=== PATIENT | female | born 1935 | race Caucasian/White ===

== ENCOUNTER 2024-09-16 21:30 | Inpatient (IN) | payer OTHER, SELFPAY ==
[2024-09-16 18:40] VITALS: BMI 20.3
[2024-09-16 18:45] VITALS: BP 172/88
[2024-09-16 18:56] LABS: Glucose - Point of Care 95 mg/dl (70-99)
--- NOTE | 2024-09-16 19:06 | ED.CVA ---
History of Present Illness
<Lynne De Los Santos COMMODITIES CLERK - Last Filed: 09/16/24 22:00>
General
Chief Complaint: CVA/TIA Symptoms
Source: patient and family (daughter and son in law at bedside)
Exam Limitations: none
Time Seen by Provider: 09/16/24 19:01
Onset of Stroke Symptoms
Onset of symptoms known: Yes
Date of onset of symptoms: 09/16/24
History of Present Illness
History of Present Illness:
89 yo female with hx of HTN, seizures (last known seizure 8 mos ago), lives alone. Last known normal 10 a.m. today. Was on the phone with her daughter around 17:45 when she developed 'talking gibberish.' She presents with family who state she is
fully oriented but still with periods of talking gibberish. Pt denies H/A, durham in vision, weakness, numbness. She is fully conversive and oriented but does have short periods of word salad/expressive aphasia.
Past History
<Lynne De Los Santos, COMMODITIES CLERK - Last Filed: 09/16/24 22:00>
Past History
ED Past Medical History: HTN, Hypercholesterolemia, Seizures and Other (Cochlear implants)
ED Past Surgical History: None
Social History
Tobacco: Non-smoker
Personal:
Living: with family
Employment: Retired
Review of Systems
<Lynne De Los Santos COMMODITIES CLERK - Last Filed: 09/16/24 22:00>
Review of Systems
Allergies reviewed?: Yes
All Other Systems: ROS reviewed and negative except as documented in HPI and ROS
Constitutional: Denies fever or fatigue
Respiratory: Denies trouble breathing
Cardiac: Denies chest pain
ABD/GI: Denies abdominal pain, nausea, vomiting or diarrhea
: Denies dysuria, frequency or difficulty voiding
Musculoskeletal: Reports no symptoms; Denies edema
Skin: Reports no symptoms
Neurological: Reports other (Expressive aphasia); Denies dizzy, headache, weakness or numbness
Phy Exam
<Lynne De Los Santos COMMODITIES CLERK - Last Filed: 09/16/24 22:00>
Physical Exam
Physical Exam:
GENERAL: No acute distress. A&Ox3.
CONSTITUTIONAL: Afebrile.
EYES: clear, conjunctivae normal
ENMT: moist mucus membranes, Pharynx nl
RESPIRATORY: Regular respirations, nonlabored, lungs clear.
CARDIOVASCULAR: Regular rate and rhythm, no murmurs, no rubs.
GI: Soft, nontender, normal BS
MUSCULOSKELETAL: Moves with ease. Well perfused.
SKIN: Warm, dry, pink
PSYCH: Normal mood and affect. Well kept, interactive and appropriate
NEUROLOGIC: Awake, alert and oriented. Speech clear. Strength equal throughout. Short episodes of mild aphasia/word salad intermittently. No focal neurological deficits. Out of bed and ambulating well to bathroom
Scores
<Lynne De Los Santos COMMODITIES CLERK - Last Filed: 09/16/24 22:00>
NIH Stroke Score
Level of Consciousness: 0 - Alert
LOC Questions: 0-Answers both correctly
LOC Commands: 0-Performs both correctly
Best Horizontal Gaze: 0-Normal
Visual Payne: 0=Normal, no visual loss
Facial Palsy: 0=Normal, symmetrical
Motor - Right Arm: 0=No drift 10 seconds
Motor - Left Arm: 0=No drift 10 seconds
Motor - Right Le-No drift 5 seconds
Motor - Left Le-No drift 5 seconds
Limb Ataxia: 0-Absent
Sensation: 0-Normal
Best Language: 1-Mild aphasia
Dysarthria: 0-Normal
Extinction and Inattention: 0-No abnormality
Total Score:: 1
Course
<Lynne De Los Santos COMMODITIES CLERK - Last Filed: 09/16/24 22:00>
Orders/Labs/Results
Orders:
Orders
09/16/24 19:05
NEUROLOGY CONSULT Urgent
Consulting Provider: Concepcion Maria
Was physician already notified: Yes
Reason for consult: change in mental state
09/16/24 19:07
CT HEAD STROKE ALERT W/o Cont Urgent
Comment:
Reason For Exam: change in mental state
CT HEAD/NECK ANG STROKE ALERT Urgent
Comment:
Reason For Exam: change in mental state
09/16/24 19:25
Complete Blood Count/With Diff Urgent
Comprehensive Metabolic Panel Urgent
PTT Urgent
Prothrombin Time Urgent
09/16/24 21:00
Acetaminophen [Tylenol] 650 mg PO NOW STA
Flush (0.9% Sodium Chloride) [Flush (Nss)] See Dose Instructions IV PER PROTOCOL
09/16/24 21:14
Admit/Transfer Patient As Directed
Co-Sign Provider:
Level of Care: Inpatient admission
Assign to:: Telemetry
Physician / Group: hospitalist
Diagnosis: TIA, new onset afib
Reason for Telemetry: CVA/TIA
Date to Stop Telemetry: 09/19/24
Time to Stop Telemetry: 11:00
Reason for Hospitalization: CVA/TIA
Expected length of stay greater than two midnights?: Yes
ELOS- Estimated Length of Stay in days: 2
I certify the patient meets the requirements for IP care: Yes
09/16/24 21:15
Code Status As Directed
Resuscitation Status: Full Code
09/19/24 11:00
DC Protocol for Telemetry ONCE
Abnormal Lab Results
09/16/24
19:25
WBC 12.4 H 10^3/uL
(4.8-10.8)
Abs Immat Gran (auto) 0.1 H 10^3/uL
(0-0.05)
Absolute Neuts (auto) 8.7 H 10^3/uL
(1.4-6.5)
Absolute Monos (auto) 0.7 H 10^3/uL
(0.1-0.6)
Sodium 129 L mmol/L
(135-145)
Chloride 94 L mmol/L
(98-107)
BUN 19 H mg/dl
(7-17)
09/16/24 19:25
09/16/24 19:25
Vital Signs
Initial and Last Documented VS:
Initial Vital Signs
Temp Pulse Resp BP Pulse Ox
98.3 F 83 18 172/88 89
09/16/24 18:45 09/16/24 18:45 09/16/24 18:45 09/16/24 18:45 09/16/24 18:45
Last Documented Vital Signs
Temp Pulse Resp BP Pulse Ox
100.2 F 104 19 160/88 93
09/16/24 19:00 09/16/24 21:00 09/16/24 21:00 09/16/24 19:22 09/16/24 20:35
Lamp Replacer consulted with Physician
Lamp Replacer consulted with physician?: Yes
Name of Physician Consulted: Robert
Neillt;Jose Jones, DO - Last Filed: 09/16/24 20:22>
Orders/Labs/Results
Orders:
Orders
09/16/24 19:05
NEUROLOGY CONSULT Urgent
Consulting Provider: Concepcion Maria
Was physician already notified: Yes
Reason for consult: change in mental state
09/16/24 19:07
CT HEAD STROKE ALERT W/o Cont Urgent
Comment:
Reason For Exam: change in mental state
CT HEAD/NECK ANG STROKE ALERT Urgent
Comment:
Reason For Exam: change in mental state
09/16/24 19:25
Complete Blood Count/With Diff Urgent
Comprehensive Metabolic Panel Urgent
PTT Urgent
Prothrombin Time Urgent
09/16/24 21:00
Acetaminophen [Tylenol] 650 mg PO NOW STA
Flush (0.9% Sodium Chloride) [Flush (Nss)] See Dose Instructions IV PER PROTOCOL
09/16/24 21:14
Admit/Transfer Patient As Directed
Co-Sign Provider:
Level of Care: Inpatient admission
Assign to:: Telemetry
Physician / Group: hospitalist
Diagnosis: TIA, new onset afib
Reason for Telemetry: CVA/TIA
Date to Stop Telemetry: 09/19/24
Time to Stop Telemetry: 11:00
Reason for Hospitalization: CVA/TIA
Expected length of stay greater than two midnights?: Yes
ELOS- Estimated Length of Stay in days: 2
I certify the patient meets the requirements for IP care: Yes
09/16/24 21:15
Code Status As Directed
Resuscitation Status: Full Code
09/19/24 11:00
DC Protocol for Telemetry ONCE
Abnormal Lab Results
09/16/24
19:25
WBC 12.4 H 10^3/uL
(4.8-10.8)
Abs Immat Gran (auto) 0.1 H 10^3/uL
(0-0.05)
Absolute Neuts (auto) 8.7 H 10^3/uL
(1.4-6.5)
Absolute Monos (auto) 0.7 H 10^3/uL
(0.1-0.6)
Sodium 129 L mmol/L
(135-145)
Chloride 94 L mmol/L
(98-107)
BUN 19 H mg/dl
(7-17)
09/16/24 19:25
09/16/24 19:25
Vital Signs
Initial and Last Documented VS:
Initial Vital Signs
Temp Pulse Resp BP Pulse Ox
98.3 F 83 18 172/88 89
09/16/24 18:45 09/16/24 18:45 09/16/24 18:45 09/16/24 18:45 09/16/24 18:45
Last Documented Vital Signs
Temp Pulse Resp BP Pulse Ox
100.2 F 104 19 160/88 93
09/16/24 19:00 09/16/24 21:00 09/16/24 21:00 09/16/24 19:22 09/16/24 20:35
<Lynne De Los Santos, COMMODITIES CLERK - Last Filed: 09/16/24 22:00>
MDM/Problems Addressed
Differential Diagnosis Includes:
post ictal, TIA, CVA
MDM/Problems Addressed:
89 yo female with hx of HTN, seizures (last known seizure 8 mos ago), lives alone. Last known normal 10 a.m. today. Was on the phone with her daughter around 17:45 when she developed 'talking gibberish.' She presents with family who state she is
fully oriented but still with periods of talking gibberish. Pt denies H/A, dur[place] in vision, weakness, numbness. She is fully conversive and oriented but does have short periods of word salad/expressive aphasia.
NIH score 1
CBC unremarkable
CMP: Hyponatremia, Na+ at her baseline. Otherwise unremarkable
7:20 PM:
Radiology report texted: No acute abnormalities, aspect score 10
CT Head/neck stroke alert report reviewed: No acute finding
Plan: Admit: expressive aphasia, new onset afib. Has been NSR most of time with short runs of a fib w RVR
Consulted Neurology about poss Heparinization, she states anticoagulation should be delayed to day 5 from acute stroke symptoms.
Hospitalist notified of admission
<Lynne De Los Santos, COMMODITIES CLERK - Last Filed: 09/16/24 22:00>
*Critical Care Note
Total Time (30-74mins, 75-104mins- exclusive of procedures): Not Applicable
ED Attending Note
<Lynne De Los Santos COMMODITIES CLERK - Last Filed: 09/16/24 22:00>
-
Portions of this chart may have been created with voice recognition software.� Occasional wrong word or��sound alike� substitutions may have occurred due to the inherent limitations of voice recognition software.
<Jose Jones DO - Last Filed: 09/16/24 20:22>
ED Attending Note
Patient seen and examined by attending physician: Yes
I performed the substantive portion of visit, reviewed & personally made and approve the management plan that is documented in note by myself or ISIS.: Yes
ED Attending Note:
I agree with Linsey's note
Patient brought to the emergency room because she was having some speech abnormalities. Patient uttering unusual phrases and words. She typically can communicate normally. She does have a history of seizures, both [place] and's. Typically She
Has a Short Period of Time with Confusion That Quickly Resolves. She Has Had the Symptoms for the past Several Hours. She Was Last Known to Be Normal at 10 AM. Patient Offers No Complaints.
General: Awake, Alert, Oriented X3. No acute distress.
Vitals: unremarkable
Head: Atraumatic
Eyes: Pupils equal, EOMI
Throat: Airway intact, no exudates
Neck: Trachea midline
Lungs: Clear and equal b/l
Heart: Regular rate, no murmurs
Abd: Soft, Nontender, No pulsatile mass
Neuro: Some expressive aphasia, cranial nerves intact, muscle strength equal bilaterally, cerebellar exam normal
Skin: Warm, dry, no rash
Extremities: pulses equal b/l, no edema
CT head and neck showed no significant acute abnormalities.
Patient will be hospitalized for stroke workup. She has been having episodes of tachycardia which appear to be runs of atrial fibrillation. Will discuss with neurology anticoagulation if they improve we will anticoagulate as appropriate.
Discharge Plan
Departure
Patient Disposition: Admit
Date of Disposition: 09/16/24
Time of Disposition: 20:30
Admit to: Med/Surg
Presentation/result/management discussed w/ accepting MD/DO: Hospitalist
Condition: Fair
Discharge Problem:
Expressive aphasia, Atrial fibrillation, new onset
Interventions
Interventions:
*General Assessment Last Done: 09/16/24 19:41
*Neglect/Abuse Screening Last Done: 09/16/24 19:41
ED- Fall Risk Assessment Last Done: 09/16/24 19:41
*ED COVID-19 Vaccine History Last Done: 09/16/24 19:41
ED- Pulmonary Assessment Last Done: 09/16/24 19:41
ED- Neurological Assessment Last Done: 09/16/24 19:41
ED- Cardiac Assessment Last Done: 09/16/24 19:41
ED Swallowing Screen Last Done: 09/16/24 21:01
[2024-09-16 19:22] VITALS: BP 160/88
[2024-09-16 19:32] LABS: % Basophils 0.3 % (0-2); % Eosinophils 0.1 % (0-6); % Immature Granulocytes 0.4 % (0-0.5); % Lymphocytes 24.2 % (20.5-51.1); % Monocytes 5.4 % (1.7-9.3); % Neutrophils 69.6 % (42.2-75.2); Absolute Immature Granulocytes 0.1 10^3/uL (0-0.05); Absolute Monocytes 0.7 10^3/uL (0.1-0.6); Absolute Neutrophils 8.7 10^3/uL (1.4-6.5); Hematocrit 41.1 % (37.0-47.0); Hemoglobin 13.9 g/dL (12.0-16.0); Mean Corp Hgb Conc. 33.8 g/dL (33.0-37.0); Mean Corpuscular Hgb 30.5 pg (27.0-31.0); Mean Corpuscular Volume 90.1 fL (81.0-99.0); Mean Platelet Volume 8.2 fL (7.4-10.4); Nucleated Red Blood Cells % 0 %; Platelet Count 303 10^3/uL (130-400); Red Blood Cell Count 4.56 10^6/uL (4.20-5.40); Red Cell Dist. Width 12.9 % (11.5-14.5); White Blood Cell Count 12.4 10^3/uL (4.8-10.8)
[2024-09-16 19:42] LABS: INR 0.95; PT 12.9 Sec (11.4-14.6)
[2024-09-16 19:43] LABS: APTT 31.4 Sec (23.4-35.0)
[2024-09-16 19:45] LABS: ALT (SGPT) 16 U/L (0-35); AST (SGOT) 27 U/L (14-36); Albumin 4.9 g/dl (3.5-5.0); Alkaline Phosphatase 101 U/L (38-126); Blood Urea Nitrogen 19 mg/dl (7-17); Calcium 9.8 mg/dl (8.4-10.2); Carbon Dioxide 24 mmol/L (22-30); Chloride 94 mmol/L (98-107); Estimated Creatinine Clearance 43 ml/min; Glucose 93 mg/dl (70-99); Potassium 4.7 mmol/L (3.5-5.1); Sodium 129 mmol/L (135-145); Total Bilirubin 0.7 mg/dl (0.2-1.3); Total Protein 7.6 g/dl (6.3-8.2); eGFR > 60.00
--- NOTE | 2024-09-16 20:36 | HPS.HSE ---
Family Physician
-
Family Physician: Reji Zamudio
Chief Complaint
-
Expressive aphasia
History of Present Illness
This is a 89-year-old female with past medical history of hypertension, seizure disorder and SIADH who presents to the Emergency Department with episode of expressive aphasia that was noted at around 5:45 PM.
Patient was last seen normal at 10 AM when he last spoke to her daughter on the phone. At around 5:30 PM family member stated that she was having difficulty getting her words out. When she does say the words, it is normal without slurring. She
appears slightly confused due to the word finding difficulty otherwise she is able to understand what people are saying and generally able to follow simple commands. Patient reported mild numbness of the toes bilaterally but denies any other focal
deficits. She denies any facial droop, difficulty swallowing, weakness or numbness. Patient denies having any lightheadedness or dizziness. She denied having any palpitations. She denies any chest pain. She denies any lower extremity swelling.
In the emergency department she was afebrile, temp was 100.2, blood pressure 160/88 with a pulse of 83. She was at 9 7% on room air. ECG was unremarkable. Telemetry did shows intermittent short runs of atrial fibrillation. No prior history of
A-fib. Patient has a normal CBC. BUN and creatinine are normal. Electrolytes notable for a sodium of 129. CT of the head shows diffuse cortical atrophy but otherwise no acute changes. CT angio shows no evidence of large vessel thrombus stenosis
dissection or aneurysm. Internal carotid artery atherosclerotic plaques without significant stenosis.
Medical History
Past Medical History
Past Medical History: Reports HTN, Seizures and Other (SIADH)
Past Surgical History: Reports Orthopedic (Right femoral ORIF)
Social History
Tobacco: Non-smoker
Alcohol: None
Drug: None
Personal: Single
Living: With Family
Family History
Family History: Not pertinent
Allergies / Home Medications
Allergies reflects when Allergies were last updated in [employer].
Home Medications with original date entered in [employer]
Allergy/Medication List:
Allergies
Allergy/AdvReac Type Severity Reaction Status Date / Time
No Known Allergies Allergy Verified 09/16/24 18:48
Home Medications
lamotrigine 200 mg tablet 200 mg PO BID 09/18/23
losartan 50 mg tablet 50 mg PO DAILY 09/18/23
calcium carbonate (Tums) 200 mg PO BID #30 tabs 09/23/23
acetaminophen 650 mg tablet,extended release (Tylenol Arthritis Pain) 650 mg PO Q8HPRN PRN mild pain 09/16/24
docusate sodium 100 mg capsule 100 mg PO HS 09/16/24
Review of Systems
-
History Source: Patient and Family
Constitutional: Reports No Symptoms
EENT: Reports No Symptoms
Respiratory: Reports No Symptoms
Cardiac: Reports No Symptoms
Abdomen/GI: Reports No Symptoms
: Reports No Symptoms
Musculoskeletal: Reports No Symptoms
Skin: Reports No Symptoms
Neurological: Reports No Symptoms
Endocrine: Reports No Symptoms
Hematologic/Lymphatic: Reports No Symptoms
Psych: Reports No Symptoms
Physical Exam
Vital Signs
Vital Signs
Temp Pulse Resp BP Pulse Ox
100.2 F 83 26 160/88 97
09/16/24 19:00 09/16/24 20:15 09/16/24 20:15 09/16/24 19:22 09/16/24 20:15
Physical Exam
General: Well Developed, Well Nourished, No Apparent Distress and Comfortable
HEENT: NormoCephalic, Anicteric, Moist mucous membranes and Atraumatic
Respiratory: Clear
Cardiac: S1/S2, Regular Rhythm, Irregular Rhythm and Carotid Pulses; No Peripheral Edema, JVD or Carotid Bruits
Breast: Deferred by me
GI: Soft, Non Tender, Non Distended and Normal Bowel Sounds
Rectal: Deferred by Provider
Genito-urinary: Deferred by me
Musculoskeletal: No Clubbing, No Cyanosis and No Edema
Skin: Warm
Neuro: AO x 3, No Motor Deficits, Cranial Nerves Intact, No Sensory Deficits and Other (word finding difficulties )
Hematologic/Lymphatic: No Lymphadenopathy
Psych: Calm
Laboratory Results
-
09/16/24 19:25
09/16/24:
Laboratory Results
PT 12.9 Sec (11.4-14.6) 09/16/24
INR 0.95 09/16/24
APTT 31.4 Sec (23.4-35.0) 09/16/24
Total Bilirubin 0.7 mg/dl (0.2-1.3) 09/16/24
AST 27 U/L (14-36) 09/16/24:
ALT 16 U/L (0-35) 09/16/24:
Alkaline Phosphatase 101 U/L (38-126) 09/16/24:
Data Reviewed
-
CT Scan: Report Reviewed by me
Medical Tests (Nuc Med, Echo, EKG etc): Image Personally Visualized and interpreted
Lab Data: Labs Reviewed by me
Old Records: Reviewed
Impression/Plan
-
IMPRESSION:
89 y.o female with h/o hypertension found to have word finding difficulty at around 545pm with a last normal at around 10 am. Currently still mildly symptomatic. No other neurological deficit. NIHSS = 1. Possibly TIA. CT head negative. CT angio
without focal stenosis, thrombus, dissection or obstruction. Found to have intermittent afib rvr on telemetry without patient awareness or symptoms.
PLAN:
CVA/TIA -
- admit to telemetry
- aspirin x 1
- given possible afib, hold plavix, check mri in am
- check cardiovascular panel and a1c
- if mri negative for hemorrhagic stroke, can start anticoagulation
- neurochecks q 6 hours
- Maintain MAP > 100, < 130
- swallow testing then start oral meds
- neurology consulted and aware
AFIB - New afib. Mostly sinus with intermittent episodes of afib RVR. No intermittent pauses.
- hemodynamically stable
- metoprolol IV prn uncontrolled afib, start oral dosing once tolerating po in am
- echo in am
- ac if mri negative for hemorrhagic stroke.
- check tsh ft4
- cardiology consult
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 Currently 129. Hypertensive
- continue fluid restriction
Seizures
- continue lamotrigine
DVT PPX - heparin sq for now pending ac
Code status - Full code. Family aware of advance directs and will investigate tomorrow to see if status needs to be changes.
[2024-09-16] MEDS: TYLENOL 650 MG PO (21:07)
[2024-09-16 21:09] VITALS: BP 186/99
[2024-09-16 22:00] VITALS: BP 151/94
[2024-09-16] MEDS: LAMICTAL 200 MG PO (22:06)
[2024-09-16 23:00] VITALS: BP 159/88; BMI 20.5
[2024-09-16] MEDS: HEPARIN 5000 UNITS SC (23:03)
[2024-09-16] MEDS: COLACE 100 MG PO (23:14)
[2024-09-17] VITALS (8 sets, daily range): BP systolic 135–179; BP diastolic 65–82; PULSE 74–83; O2SAT 99
--- NOTE | 2024-09-17 00:01 | PTCARENOTE ---
pt is aaox3, very [place] has cochlear device. pt NIH=1 for aphasia. pt is on tele appears SR w/ PACS- confirmed w/ ekg. pt is not in afib.
admission completed w/ p's daughter. Per daughter Doris has a hx of seizures and when under stress she goes into them. last time when she was here in August. she had 2 seizure activities. pulse ox applied. and padding to bed
bed alarm pn and call barreto in reach
[2024-09-17 08:16] LABS: HDL Cholesterol 87 mg/dl; LDL Cholesterol, Calculated 88 mg/dl; Total Cholesterol 193 mg/dl (50-199); Triglyceride 93 mg/dl (10-149); Very Low Density Lipoprotein 18 mg/dl (0-30)
[2024-09-17 08:31] LABS: TSH Reflex To Free T4 1.82 uIU/ml (0.47-4.68)
--- NOTE | 2024-09-17 08:45 | PTOTSP ---
Speech Language Pathology
Pt seen for speech/language evaluation. No dysarthria noted, and pt was 100% intelligible in both known and unknown contexts. Language evaluated via the Quick Aphasia Battery (QAB), form 1. Pt with an overall score of 8.98, indicative of skills
WFL. However, on sentence comprehension subtest, pt scored 7.08 (moderate deficits), and on grammatical construction subtest, pt scored 8.25 (mild deficits). Pt [place] with L cochlear implant and R hearing aid. Unsure if true receptive aphasia vs
related to hearing deficit. Neologism noted x1 in conversation, and pt was not aware of this. Also noted with agrammatism in connected speech at times, such as 'They're all doing busy. All working. Very busy.' Pt does not feel there have been
any changes.
Pt also seen for clinical bedside swallow evaluation. P.O. trials of regular solids and thin liquids provided. Adequate mastication, bolus formation, and A-P transit noted with no oral residue. No overt signs of aspiration.
Recommend:
(1) Regular solids/thin liquids
(2) General aspiration precautions
(3) Meds as tolerated
(4) Further dysphagia services not indicated. [employer] to continue to follow for cognitive-linguistic therapy pending MRI
[2024-09-17 09:07] LABS: Glycohemoglobin (HgbA1c) 5.4 % (4.0-5.6)
[2024-09-17] MEDS: COZAAR 50 MG PO (09:12)
[2024-09-17] MEDS: LAMICTAL 200 MG PO ×2 (09:13→20:14)
[2024-09-17] MEDS: HEPARIN 5000 UNITS SC ×3 (09:13→23:30)
--- NOTE | 2024-09-17 09:20 | CON.NEURO4 ---
Addendum entered and electronically signed by Hung Cheng MD 09/17/24 12:40:
Studies reviewed.
I have personally examined the patient. I reviewed and agree with the SALAD MAKER's Note.
My addenda:
Awake, alert, interactive. No acute distress.
Speech intact.
Follows 2-step requests w/o difficulty. No tremor.
Extra-ocular movements grossly intact.
Facial movements full and symmetric. Hearing intact to normal conversational volume.
Normal UE movements bilaterally.
Neck: full ROM.
Chest: no dyspnea
Heart: no JVD
Ext: (-) Clubbing, (-) Cyanosis, (-) Edema
IMPRESSIONS/RECOMMENDATIONS:
Abrupt onset of aphasia in a patient with possibly hyponatremic seizures and probable new onset atrial fibrillation
Would initiate anticoagulation if the patient is found to have atrial fibrillation or a similar substitute, immediately
Appreciate cardiology assistance
If unclear or the patient not found to have atrial fibrillation, would initiate aspirin 81 mg daily and clopidogrel 75 mg daily for total of 21 days, then aspirin alone if not using anticoagulation
Lamotrigine to be continued, follow levels
Attempt to obtain records from [place]
Initiated Atorvastatin 40 mg daily
Medical educational materials to be provided
Patient may require salt tablets to improve hyponatremia
Goal of normotension
D/W patient / family
Will continue to follow patient.
Original Note:
Consultation - Neurology 4
-
CONSULTING PHYSICIAN: Dr. Hung Cheng
REFERRING PHYSICIAN: ANGEL Szymanski
DICTATED BY: ANGEL Harkins
DATE/TIME OF REQUEST: 09/16/2024, 190
DATE/TIME OF CONSULTATION: 09/17/2024, 919
Reason for Consultation: speech changes
History of Present Illness:
This is a 89 year old right handed female patient with a past medical history of seizures, SIADH, hypertension, shoulder replacement, ORIF right hip and cochlear implant who presented to the hospital yesterday with transient expressive aphasia and
confusion. Yesterday 09/16/2024 patient was speaking with her daughter around 5:30 PM when she started having trouble getting her words out, she was then brought to the ER. She does have a history of seizures which at times presents as garbled
speech. She was also previously told that these episodes could be TIA. She takes lamotrigine 200 mg BID and follows with Dr. Isaacs in [place]. Daughter reports that she last had a seizure 6 months ago with speech changes. She had tonic clonic
seizure from sleep about 1 year ago. She does not believe that there were any changes in medications or dosage. Unsure when last lamotrigine level was drawn. She has had chronic low sodium as far back as 2013 per review of the EMR. Also it looks
as if she was on Oxcarbazepine in the past, but this was likely changed d/t low sodium.
She denied any headache, dizziness or vision changes. She denied any gait abnormality. She does admit that she does not have a good recollection of of event. Daughter reports speech was not back to baseline till much later last night.
Per chart in the ER she was found to have possible short runs of atrial fibrillation which is new to patient. She has never been on any anticoagulation. Sodium was 129. CT of the head with no acute findings.
Today speech is back at baseline.
She follows with her primary care doctor for low sodium levels. She has never been on any salt tablets or fluid restriction. She has been told to add salt to her diet.
She has had cochlear implant placed about 5 years ago. Per family it is MRI compatible. MRI team is checking make and model to ensure MRI compatibility.
Medical history was obtained form family, patient and review of EMR.
Past Medical History: Hypertension, seizure, SIADH
Surgical History: Right hip ORIF, cochlear implants
Family History: Reviewed and noncontributory
Social History: Patient lives at [facility] home independently. She does not smoke or drink alcohol.
Allergies: See below
Home Medications: See below
Review of Symptoms:
Patient denies any fever, headache, chest pain, shortness of breath, GI or symptoms. �
Vital Signs: See below
Physical Exam:
The patient is afebrile, heart sounds S1 and S2 are regular, and chest is clear to auscultation bilaterally.
Neurologic Examination:
The patient is awake, alert and oriented x 3. She is able to follow commands and answer questions appropriately. There is no aphasia or dysarthria. On cranial nerve assessment, pupils are 3 mm bilateral, round and reactive to light and
accommodation. Visual mckeon are full. Extraocular movements are intact. Facial sensations are intact and bilaterally symmetrical, there is no facial asymmetry. Hearing is significantly redudec. Tongue palate and uvula are midline.
Sternocleidomastoid strengths are full bilaterally. Motor strengths are 5/5 bilateral upper and lower extremities on medical research [place] scale. There is no drift or involuntary movement noted. Deep tendon reflexes are brisk bilateral upper and
lower extremities. Sensation of light touch is intact. Sensations of temperature and vibration are reduced distally but bilaterally symmetrical. There was no extinction noted on double simultaneous stimulation. Coordination is intact by finger to
nose bilaterally. Ambulated with walker with therapy.
Lab Results: See below
Neuro Imaging:
CT head 09/16/2024
There are no acute intracranial abnormalities.
There is moderate diffuse cortical atrophy with moderate nonspecific white matter changes as described above.
CTA head and neck
1). There is no evidence of branch occlusion or significant intracranial stenosis
2). There is a small amount of partially calcific atherosclerotic plaque at both carotid bifurcations without significant stenosis
3). There is a small amount of partially calcific atherosclerotic plaque at the cavernous and supraclinoid segments of both internal carotid arteries without significant stenosis
Impression:
JOLIE CERRATO is a 89 year old F who has presented to the hospital with transient speech changes in the setting of possible new onset of atrial fibrillation. Differentials include TIA versus acute stroke versus recurrent seizure.
Patient has the following risk factors for their symptoms age, new onset atrial fibrillation
IV Tenecteplase/IAT candidacy-low NH, resolution of symptoms, no LVO noted
Recommendations:
-Repeat CT head if unable to obtain MRI brain would be ideal, MRI department is checking compatibility for MRI
-CTA head and neck completed in the ER, no significant stenosis noted
-Given no residual deficits, though unable to obtain MRI of the brain would OK to start anticoagulation if cardiology confirms atrial fibrillation
-If not starting Anticoagulation recommendation would be DAPT for 21 days followed by Daily ASA
-LDL was 88, Atorvastatin 40 mg was initiated
-goal normoglycemia
-goal normotension
-check echo
-PT/OT and speech evaluations
-Need records from Dr. Isaacs, patients primary neurologist
-will add on Lamotrigine level
-continue Lamotrigine, may need to consider alternate AED
-May need to consider EEG
-check labs for additional metabolic causes
-NA 129, need to closely monitor
-need to closely monitor for seizure activity
Discussed patient care with:
Patient, nursing and neurologist Dr. Cheng
Medication and Allergies
Home Medications
Home Medications
�Medication �Instructions �Recorded
lamotrigine 200 mg tablet 200 mg PO BID Neurological 09/18/23
Condition
losartan 50 mg tablet 50 mg PO DAILY Blood Pressure 09/18/23
calcium carbonate (Tums) 200 mg PO BID #30 tabs 09/23/23
acetaminophen 650 mg 650 mg PO Q8HPRN PRN mild pain 09/16/24
tablet,extended release (Tylenol
Arthritis Pain)
docusate sodium 100 mg capsule 100 mg PO HS Constipation 09/16/24
Allergies
Allergies
Allergy/AdvReac Type Severity Reaction Status Date / Time
No Known Allergies Allergy Verified 09/16/24 18:48
Vital Signs / Labs
-
Vital Signs and Labs:
Temp Pulse Resp BP Pulse Ox
97.6 F 64 18 155/76 96
09/17/24 07:30 09/17/24 07:30 09/17/24 07:30 09/17/24 07:30 09/17/24 07:30
09/16/24 19:25
09/16/24 19:25
09/16/24
19:25
WBC 12.4 H
Abs Immat Gran (auto) 0.1 H
Absolute Neuts (auto) 8.7 H
Absolute Monos (auto) 0.7 H
Sodium 129 L
Chloride 94 L
BUN 19 H
--- NOTE | 2024-09-17 10:10 | CON.CAR ---
Addendum entered and electronically signed by Rene Velez MD 09/17/24 14:54:
89 woman with SIADH and history of seizures presented with an expressive aphasia. By history, her seizures are not classic tonic-clonic, sound more like absence seizures or partial complex seizures.
19. Head CT showed atrophy. No acute infarct, no large vessel occlusion by CTA of the head neck, episodes of irregular heart rhythm have prompted a request for cardiology consultation.
PMH: Hypertension, seizures, SIADH, sensorineural deafness
PSH: Right shoulder ORIF, cochlear implants
SH: , non-smoker, independent living at [facility], 9 children
FH: Noncontributory
Allergies: None
Outpatient meds: Lamotrigine, losartan 50 mg a day
Current meds: Lamotrigine, losartan 50 mg a day, aspirin 81 mg a day, subcu heparin, atorvastatin 40 mg a day, metoprolol ER 25 mg a day and Plavix 75 mg a day
147/78, pulse 68, resp rate 18, afebrile, and exam unremarkable, some crackles in lungs, regular rate and rhythm, possible click, no obvious murmurs, exam somewhat limited abdomen benign, extremities without clubbing cyanosis or edema distal pulses
intact, neuro seems to be nonfocal grossly
ECG sinus rhythm with atrial pair, left atrial enlargement
Telemetry: brief runs of what appears to be SVT with retrograde P waves, episodes of atrial tachycardia, 1 episode lasting 24 seconds. Atrial fibrillation cannot be excluded
Impression:
Atrial tachycardia, brief, no clear-cut atrial fibrillation seen thus far, asymptomatic
SVT by rhythm strip in ER, self-limited
Hyponatremia/SIADH
Seizure disorder, sounds like partial complex
Plan:
She presents with abrupt onset aphasia, now resolved, without clear-cut evidence by CT of the head and an acute ischemic insult. Sodium is 129.
Review of telemetry does not reveal atrial fibrillation brief runs of atrial tachycardia, implying increased risk of atrial fibrillation although atrial fibrillation not documented to date. She also had a brief self-limited episode of SVT on
telemetry strip in the ER with retrograde P waves.
For now, we will treat with aspirin and Plavix, and observe on telemetry for A-fib. Will apply a 2-week monitor at discharge (most likely RhythmStar) and thereafter determine if further ambulatory telemetry is required. If no arrhythmia, will
discuss whether implantation of LINQ is warranted.
Continue metoprolol. Await echocardiogram
Original Note:
Consultation
Consultation Request
Date/Time Consultation Requested: 09/17/2024
Date/Time Consultation Performed: 09/17/2024
Requesting Provider: Dr. Medrano
Performing Provider: Pam Perez PA-C for Dr. Rene Velez
Reason for Consultation: Tachycardia, PAT
Medical History
-
History of Present Illness:
Patient is an 89-year-old female with past medical history significant for hypertension, seizure disorder and SIADH who presented to emergency department 09/16/2024 with expressive aphasia that started around 5:45 PM on 09/16/2023. Patient's last
known normal was 10 AM when she spoke to daughter on the phone. Around 5:30 PM family member started noting word finding difficulty as well as mild confusion. On arrival to emergency department patient had a low-grade temperature of 100.2. Sodium
129. Head CT demonstrated diffuse cortical atrophy with no acute abnormalities. CTA of head and neck showed no evidence of large vessel occlusion, dissection or aneurysm. She was found to have intermittent episodes of tachy-arrhythmia concerning
for Afib prompting cardiology consult. Upon review of tele it appears she is having primarily paroxysmal atrial tachycardia as well as sinus rhythm w/ frequent PACs.
Patient denies having any prior cardiac history or ever seeing a fitter armament. She lives at [facility]. she denies chest pain, shortness of breath, dizziness, lightheadedness, palpitations, syncope, near syncope edema, orthopnea or PND.
Past medical history:
Hypertension
Seizure disorder
SIADH
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
Past Medical History
Past Medical History: Other (See HPI)
Past Surgical History: Orthopedic (Right shoulder ORIF) and Other (Cochlear implant)
Social History
Tobacco: Non-Smoker
Alcohol: None
Drug: None
Personal:
Living: Other (Independent living at [facility])
Family History
Family History: Reviewed & Not Pertinent
Allergies / Home Medications
Allergy/AdvReac Type Severity Reaction Status Date / Time
No Known Allergies Allergy Verified 09/16/24 18:48
�Medication �Instructions �Recorded �Confirmed �Type
lamotrigine 200 mg tablet 200 mg PO BID Neurological 09/18/23 09/16/24 History
Condition
losartan 50 mg tablet 50 mg PO DAILY Blood Pressure 09/18/23 09/16/24 History
calcium carbonate (Tums) 200 mg PO BID #30 tabs 09/23/23 09/16/24 Rx
acetaminophen 650 mg 650 mg PO Q8HPRN PRN mild pain 09/16/24 09/16/24 History
tablet,extended release (Tylenol
Arthritis Pain)
docusate sodium 100 mg capsule 100 mg PO HS Constipation 09/16/24 09/16/24 History
Review of Systems
-
History Source: Patient
All other systems: Negative unless noted
Physical Exam
Vital Signs
Temp Pulse Resp BP Pulse Ox
97.6 F 64 18 155/76 96
09/17/24 07:30 09/17/24 07:30 09/17/24 07:30 09/17/24 07:30 09/17/24 07:30
GEN: No distress, awake, Ox3
HEENT: supple, anicteric, mmm; very SLEETMUTE
LUNGS: few course BS left middle lobe otherwise CTA, no wheezes/rales
CV: Reg with ectopy noted, S1/S2, 1/6 syst murmur, no rub or gallop
ABD: soft, BS+, NT/ND
EXT: No edema, clubbing or cyanosis
NEURO: Gross non-focal
SKIN: No rash, warm, dry
Lab Results
09/16/24 19:25
09/16/24 19:25
Impression / Plan
-
PCP: Reji Zamudio
Case Repairer: None prior to admission, initial consultation Rene Velze
Impression:
Presented 09/16/2024 with word finding difficulties and confusion
TIA versus stroke versus seizure
Fever
Hyponatremia
PAT/sinus rhythm with frequent PACs
Hypertension
Seizure disorder
SIADH
Legally deaf with cochlear implant
Echo 09/17/2024: Pending
Plan:
-Presented 09/16/2024 with word finding difficulties and confusion. Noted to have low-grade fever 100.2 and hyponatremia with sodium 129
-Concern for TIA/stroke vs seizure. Head CT unremarkable. MRI ordered but unclear if it can be completed due to history of cochlear implant.
-Per my personal review of telemetry it appears that patient is having brief runs of PAT, sinus rhythm with frequent PACs. Only 1 episode of tachycardia could possibly be atrial fibrillation however very difficult to determine. Currently in sinus
rhythm w/ PACs
-Would start low-dose Toprol 25 mg daily and continue to monitor on telemetry. If no definitive atrial fibrillation on tele then would consider 1 week outpatient monitor on Toprol.
-Check echocardiogram
-TSH 1.82
-If true documented A-fib noted or if patient found to have new stroke concerning for cardioembolic cause then will need to consider anticoagulation.
-Patient on losartan for hypertension prior to admission. Can be reduced if blood pressure should become hypotensive with addition of Toprol
-Prestatin lipids TC 193, HDL 87, LDL 88, triglycerides 93. Patient now started on atorvastatin 40 mg.
-H/o SIADH with baseline Na around 127 - 130. Currently 129
HPI 09/17/2024:
Patient is an 89-year-old female with past medical history significant for hypertension, seizure disorder and SIADH who presented to emergency department 09/16/2024 with expressive aphasia that started around 5:45 PM on 09/16/2023. Patient's last
known normal was 10 AM when she spoke to daughter on the phone. Around 5:30 PM family member started noting word finding difficulty as well as mild confusion. On arrival to emergency department patient had a low-grade temperature of 100.2. Sodium
129. Head CT demonstrated diffuse cortical atrophy with no acute abnormalities. CTA of head and neck showed no evidence of large vessel occlusion, dissection or aneurysm. She was found to have intermittent episodes of tachy-arrhythmia concerning
for Afib prompting cardiology consult. Upon review of tele it appears she is having primarily paroxysmal atrial tachycardia as well as sinus rhythm w/ frequent PACs.
Patient denies having any prior cardiac history or ever seeing a fitter armament. She lives at [facility]. she denies chest pain, shortness of breath, dizziness, lightheadedness, palpitations, syncope, near syncope edema, orthopnea or PND.
Data Reviewed
-
EKG: Report Reviewed by me, Discussed with Physician and Discussed with Patient
Labs: Labs Reviewed by me, Discussed with Physician and Discussed with Patient
Old Records: Reviewed
[2024-09-17 10:20] LABS: Urine Albumin Negative (Neg - Trace); Urine Bilirubin Negative (Negative); Urine Character Clear (Clear); Urine Color Yellow; Urine Glucose Negative (Negative); Urine Ketone Negative (Negative); Urine Leukocyte Negative (Negative); Urine Nitrite Negative (Negative); Urine Occult Blood Negative (Negative); Urine Specific Gravity 1.015 (<1.030); Urine Urobilinogen Negative (Neg - 1+)
--- NOTE | 2024-09-17 10:54 | CM ---
Addendum entered by Anisha Yates 09/18/24 11:54:
Ramana
Original Note:
NYA met with Danna at bedside to complete IA. She lives independently in a cottage at [facility]. She ambulates with a rollator at home and reports being (I) amb and adls. Patient has 9 children who check on her regularly.
PT evaluated and recommend home PT to ensure safety after returning home. Pt is known to [facility] in past and pt's daughter Terri agrees to referral.
Plan: Discharge to home with [facility]ana for PT. Family will provide transport home at discharge.
[2024-09-17 11:51] LABS: Free T4 1.17 ng/dl (0.78-2.19)
[2024-09-17 12:09] LABS: Ferritin 21.7 ng/ml (11.1-264.0)
[2024-09-17] MEDS: TOPROL XL 25 MG PO (12:38)
[2024-09-17] MEDS: PLAVIX 75 MG PO (12:38)
[2024-09-17] MEDS: LOW STRENGTH ASPIRIN 81 MG PO (12:39)
[2024-09-17 12:41] LABS: Folate 15.1 ng/ml (2.76-20); Vitamin B12 665 pg/ml (239-931)
--- NOTE | 2024-09-17 15:05 | W.PN.HOSP.TC ---
Today's Communication/Plan
-
See plan
Assessment / Plan
Assessment / Plan
Impression:
Presentation with aphasia and concern for TIA/CVA.
SVT atrial tachycardia
Other conditions:
Chronic hyponatremia/SIADH
Seizure disorder.
Essential hypertension.
Legally deaf with cochlear implant
Plan:
Presentation with self-limited episode of motor aphasia.
No focal findings on neurologic examination.
CT scan of the head with no acute abnormalities
CTA with no vascular obstruction.
EKG/telemetry with atrial tachycardia and SVT with so far no evidence of arrhythmia.
Unable to perform MRI due to cochlear implant.
Current neurologic status is stable.
Initiated on DAPT.
Initiated on statin.
Outpatient cardiac monitoring for occult A-fib
Initiated on low-dose of metoprolol
Physical/speech therapy assessment
No evidence for infection including UTI.
Chronic hyponatremia sodium 129.
TSH within normal limits.
Monitor sodium.
This is less likely contributing to patient's symptoms.
Essential hypertension.
Continue metoprolol, losartan
Seizure disorder.
Likely partial seizure.
Continue Lamictal
Anticipated Discharge: 24 - 48 hours
Subjective/Interval History
-
Date of Service: September 17, 2024
Objective Data
-
Vital Signs:
Vital Signs
Temp Pulse Resp BP Pulse Ox
97.8 F 68 18 147/78 98
09/17/24 11:23 09/17/24 11:23 09/17/24 11:23 09/17/24 11:23 09/17/24 11:23
I&O
09/16/24 09/17/24 09/18/24
06:59 06:59 06:59
Intake Total 100 / 100
Balance 100 / 100
Physical Exam
-
General: Well Developed and No Apparent Distress
HEENT: Normocephalic, Atraumatic and Moist Mucous Membranes
Respiratory: Clear to Auscultation
Cardiac: Regular Rhythm and S1/S2; Negative Murmur, Rub or Gallop
GI: Soft, Nontender, Nondistended and Normal Bowel Sounds; Negative Organomegaly
Rectal: Deferred by Provider
Musculoskeletal: No Clubbing, No Cyanosis and No Edema
Skin: Negative Rash
Neuro: Nonfocal/Grossly Intact
[2024-09-17] MEDS: LIPITOR 40 MG PO (16:02)
[2024-09-17] MEDS: COLACE 100 MG PO (20:14)
[2024-09-18 03:28] VITALS: BP 123/68
[2024-09-18 07:30] VITALS: BP 160/86
[2024-09-18 07:36] LABS: Blood Urea Nitrogen 20 mg/dl (7-17); Calcium 9.3 mg/dl (8.4-10.2); Carbon Dioxide 27 mmol/L (22-30); Chloride 97 mmol/L (98-107); Estimated Creatinine Clearance 36 ml/min; Glucose 91 mg/dl (70-99); Potassium 4.3 mmol/L (3.5-5.1); Sodium 131 mmol/L (135-145); eGFR > 60.00
[2024-09-18] MEDS: PLAVIX 75 MG PO (08:47)
[2024-09-18] MEDS: COZAAR 50 MG PO (08:47)
[2024-09-18] MEDS: LAMICTAL 200 MG PO (08:47)
[2024-09-18] MEDS: TOPROL XL 25 MG PO (08:47)
[2024-09-18] MEDS: HEPARIN 5000 UNITS SC (08:48)
[2024-09-18 09:30] VITALS: BP 149/80
--- NOTE | 2024-09-18 09:42 | W.PN.CARDCBS ---
Addendum entered and electronically signed by Bernard Khalil MD 09/18/24 13:47:
I saw and examined the patient.
The Renal Social Worker's note was reviewed and I agree with the note.
Comment: Briefly, 89-year-old woman presenting with word finding difficulties concerning for TIA
Telemetry reviewed, she is having PACs as well as episodes of atrial tachycardia however no clear atrial fibrillation or atrial flutter seen
Plan to discharge with outpatient air sampling and monitoring to assess for A-fib in which case we would transition to oral anticoagulation
Agree with aspirin/Plavix x 21 days as well as high intensity statin
We will arrange outpatient cardiology follow-up
Original Note:
Today's Communication / Plan
-
Increase Toprol to 25 mg twice a day at d/c
Will arrange for patient to wear a 2-week outpatient monitor upon discharge with follow-up for cardiology
Dual antiplatelet therapy with aspirin and Plavix x 21 days then aspirin thereafter.
New to atorvastatin this admission
Impression / Plan
-
PCP: Reji Zamudio
Lot Associate: None prior to admission, initial consultation Rene Velez
Impression:
Presented 09/16/2024 with word finding difficulties and confusion
TIA versus stroke versus seizure
Fever
Hyponatremia
SVT/PAT/sinus rhythm with frequent PACs
Hypertension
Seizure disorder
SIADH
Legally deaf with cochlear implant
Echo 09/17/2024: EF 60%. Mild concentric LVH. Moderate MR with dilated left atrium. Moderate TR with PAP 30 to 35 mmHg. The descending thoracic aorta is markedly sclerotic.
Plan:
-Presented 09/16/2024 with word finding difficulties and confusion. Noted to have low-grade fever 100.2 and hyponatremia with sodium 129
-Concern for TIA/stroke vs seizure. Head CT unremarkable. MRI ordered but unable to be completed due to history of cochlear implant. DAPT x 21 days and statin
-Review of telemetry does not reveal atrial fibrillation but brief runs of atrial tachycardia and sinus tachycardia. She also had a brief self-limited episode of SVT on telemetry strip in the ER with retrograde P waves.
-Would sent home with 2 week outpatient monitor on Toprol.
-New to low-dose Toprol 25 mg daily (09/17/24). Increase to 25 mg BID at d/c.
-Echocardiogram as noted above shows preserved ejection fraction with moderate MR and TR.
-TSH 1.82
-Patient on losartan for hypertension prior to admission. Can be reduced if blood pressure should become hypotensive with addition of Toprol
-Prestatin lipids TC 193, HDL 87, LDL 88, triglycerides 93. Patient now started on atorvastatin 40 mg.
-H/o SIADH with baseline Na around 127 - 130. Currently 129
Plan is discussed with nursing, neurology and hospitalist.
HPI 09/17/2024:
Patient is an 89-year-old female with past medical history significant for hypertension, seizure disorder and SIADH who presented to emergency department 09/16/2024 with expressive aphasia that started around 5:45 PM on 09/16/2023. Patient's last
known normal was 10 AM when she spoke to daughter on the phone. Around 5:30 PM family member started noting word finding difficulty as well as mild confusion. On arrival to emergency department patient had a low-grade temperature of 100.2. Sodium
129. Head CT demonstrated diffuse cortical atrophy with no acute abnormalities. CTA of head and neck showed no evidence of large vessel occlusion, dissection or aneurysm. She was found to have intermittent episodes of tachy-arrhythmia concerning
for Afib prompting cardiology consult. Upon review of tele it appears she is having primarily paroxysmal atrial tachycardia as well as sinus rhythm w/ frequent PACs.
Patient denies having any prior cardiac history or ever seeing a personal banking representative. She lives at [facility]. she denies chest pain, shortness of breath, dizziness, lightheadedness, palpitations, syncope, near syncope edema, orthopnea or PND.
Progress Note - Lot Associate
Subjective
Date of Service: September 18, 2024
Patient seen and examined. Patient reports she is feeling well. She was able to ambulate walk with PT today without difficulty. She is eager to go home.
Objective
Labs:
09/16/24 19:
09/18/24 06:06
Labs
Hgb 13.9 g/dL (12.0-16.0) 09/16/24:
Hct 41.1 % (37.0-47.0) 09/16/24:
Plt Count 303 10^3/uL (130-400) 09/16/24:
PT 12.9 Sec (11.4-14.6) 09/16/24
INR 0.95 09/16/24
APTT 31.4 Sec (23.4-35.0) 09/16/24:
Sodium 131 mmol/L (135-145) L 09/18/24 06:06
Potassium 4.3 mmol/L (3.5-5.1) 09/18/24 06:06
BUN 20 mg/dl (7-17) H 09/18/24 06:06
Creatinine 0.8 mg/dL (0.6-1.0) 09/18/24 06:06
Glucose 91 mg/dl (70-99) 09/18/24 06:06
Vital Signs and I&O:
Vital Signs
Temp Pulse Resp BP Pulse Ox
97.5 F 64 18 160/86 95
09/18/24 07:30 09/18/24 07:30 09/18/24 07:30 09/18/24 07:30 09/18/24 07:30
Vital Signs
Temp Pulse Resp BP Pulse Ox
97.5 F 64 18 160/86 95
09/18/24 07:30 09/18/24 07:30 09/18/24 07:30 09/18/24 07:30 09/18/24 07:30
Intake & Output
09/16/24 09/17/24 09/18/24 09/19/24
06:59 06:59 06:59 06:59
Intake Total 100 / 100 720 / 720
Balance 100 / 100 720 / 720
Physical Exam
Physical Exam
GEN: No distress, awake, Ox3
HEENT: supple, anicteric, mmm; very [place]
LUNGS: few scattered crackles at bases otherwise CTA, no wheezes/rales
CV: Reg with ectopy noted, S1/S2, 1/6 syst murmur, no rub or gallop
ABD: soft, BS+, NT/ND
EXT: No edema, clubbing or cyanosis
NEURO: Gross non-focal
SKIN: No rash, warm, dry
--- NOTE | 2024-09-18 11:27 | W.PN.NEURO.1 ---
Addendum entered and electronically signed by Hung Cheng MD 09/18/24 12:17:
Studies reviewed.
I have personally examined the patient. I reviewed and agree with the SENIOR CENTER DIRECTOR's Note.
My addenda:
Awake, alert, interactive. No acute distress.
Speech intact.
No tremor.
Extra-ocular movements grossly intact.
Facial movements full and symmetric. Hearing intact to normal conversational volume.
Normal UE movements bilaterally.
Neck: full ROM.
Chest: no dyspnea
Heart: no JVD
Ext: (-) Clubbing, (-) Cyanosis, (-) Edema
IMPRESSIONS/RECOMMENDATIONS:
Abrupt onset of aphasia
? TIA or seizure as etiology
await Lamotrigine results
continue aspirin and clopidogrel for 21 days then aspirin 81 mg alone
Atorvastatin to be continued
no indication for long-term speech therapy
D/W patient / family
Will continue to follow patient as needed.
Original Note:
Today's Communication / Plan
-
- Continue aspirin Plavix and atorvastatin
-Continue therapy
Neuro Assessment/Plan
Assessment
Pt presented to the ER with acute speech changes and confusion. Has know history of seizures and is on Lamotrigine. CT head unremarkable. Unable to obtain MRI brain d/t cochlear implant. Atrial tachycardia has been noted. Has had evaluation with
cardiology. Differential diagnosis TIA vs less likely acute stroke vs seizure.
Plan
-no need for additional imaging at this time
-ASA an Plavix x21 days then continue ASA 81 mg alone
-Continue atorvastatin 40 mg
-goal normotension
-goal normoglycemia
-Has plan for 2-week extended cardiac monitoring, should be following up with cardiology
-Continue PT OT speech evaluations and treatment
-reviewed s/s of stroke and when to be evaluated, reviewed secondary stroke prevention
-continue lamotrigine at 200 mg BID, level pending
-should use Nayzilam as seizure rescue medication at home
-DVT prophylaxis
-Rest of medical management per primary care team
Subjective/Objective
Subjective Data
Date of Service: September 18, 2024
Pt seen at bedside. She reports no new neurologic symptoms. No new episodes of garbled speech. No new weakness.
Unable to have MRI brain d/t cochlear implant.
Objective Data
Vital Signs
Temp Pulse Resp BP Pulse Ox
97.5 F 64 18 160/86 95
09/18/24 07:30 09/18/24 07:30 09/18/24 07:30 09/18/24 07:30 09/18/24 07:30
Lab Results
09/16/24 19:25
09/18/24 06:06
PT 12.9 Sec (11.4-14.6) 09/16/24 19:25
INR 0.95 09/16/24 19:25
APTT 31.4 Sec (23.4-35.0) 09/16/24 19:25
Sodium 131 mmol/L (135-145) L 09/18/24 06:06
Potassium 4.3 mmol/L (3.5-5.1) 09/18/24 06:06
BUN 20 mg/dl (7-17) H 09/18/24 06:06
Glucose 91 mg/dl (70-99) 09/18/24 06:06
Calcium 9.3 mg/dl (8.4-10.2) 09/18/24 06:06
LDL Cholesterol, Calc 88 mg/dl 09/17/24 06:52
Vitamin B12 665 pg/ml (239-931) 09/17/24 06:52
Patient Allergies
No Known Allergies Allergy (Verified 09/16/24 18:48)
LDL Level: >70, statin ordered
Review of Systems
-
History Source: Patient
All other systems: Reviewed and negative
Constitutional: No Symptoms
EENT: Hearing Loss
Respiratory: No Symptoms
Cardiac: No Symptoms
Abdomen/GI: No Symptoms
Genitourinary: No Symptoms
Musculoskeletal: No Symptoms
Skin: No Symptoms
Neuro: No Symptoms
Endocrine: No Symptoms
Hematologic / Lymphatic: No Symptoms
Allergy / Immunology: No Symptoms
Physical Exam
-
General: Well Developed and Well Nourished
Eyes: Unremarkable
HEENT: Normocephalic
Neck: Full Range of Motion
Respiratory: No Dyspnea
Cardiac: Regular Rhythm
GI: Soft
Skin: Unremarkable
Extremities: No Clubbing
Psych: Unremarkable
Extended Neurological Exam
Mood & Affect: Mood Unremarkable and Affect Unremarkable
Attention Span & Concentration: Awake, Alert, Interactive and No Difficulty with 2 Step Request
Memory: Unremarkable
Tremor: Hand Tremor Absent
Involuntary Movement: None
Speech: Quality Unremarkable and Quantity Unremarkable
Cranial Nerve II: Left Eye: Pupillary Reactivity Unremarkable, Pupillary Size Unremarkable and Visual Payne Grossly Intact
Cranial Nerve II: Right Eye: Pupillary Reactivity Unremarkable and Pupillary Size Unremarkable
Cranial Nerves III, IV, : Extraocular Movement: Extraocular Movement Full in all Directions
Cranial Nerve V: Facial Sensation: Facial Sensation Unremarkable to Cold
Cranial Nerve VII: Facial Symmetry: Normal Facial Symmetry
Cranial Nerve VIII: Hearing: Grossly Reduced
Cranial Nerves IX, X: Palate Movement: Palate Elevation Symmetric
Cranial Nerve XI: Shoulder Shrug: Unremarkable
Cranial Nerve XII: Tongue Protusion: Midline
Muscle Strength, Overall: Full Throughout
Muscle Bulk & Tone: Bulk Unremarkable and Tone Unremarkable
Pronator Drift: No Drift in Upper Extremities and No Drift in Lower Extremities
Touch Sensation: Double Simultaneous Stimulation Unremarkable
Coordination: [id number] Testing Unremarkable
[2024-09-18 11:35] VITALS: BP 155/82
--- NOTE | 2024-09-18 11:39 | W.DS.TRANS ---
DC Summary - Corrections Lieutenant
-
Discharge Instructions:
Discharge Diagnosis/Procedures TIA
Diet Low Cholesterol
Others Tests You will go home with a 2 week heart monitor and
will follow up with cardiology upon completion
of monitor
Instructions:
Stand-Alone Forms:
Changes to Home Medications: Yes
Discharge Medications:
DC Medications w/original date entered in [employer]
lamotrigine 200 mg tablet 200 mg PO BID Neurological Condition 09/18/23
losartan 50 mg tablet 50 mg PO DAILY Blood Pressure 09/18/23
calcium carbonate (Tums) 200 mg PO BID #30 tabs 09/23/23
acetaminophen 650 mg tablet,extended release (Tylenol Arthritis Pain) 650 mg PO [id number] PRN mild pain 09/16/24
docusate sodium 100 mg capsule 100 mg PO HS Constipation 09/16/24
atorvastatin 40 mg tablet 40 mg PO QPM #30 tabs 09/18/24
clopidogrel 75 mg tablet 75 mg PO DAILY #20 tabs 09/18/24
metoprolol succinate 25 mg tablet,extended release 24 hr 25 mg PO BID #60 tabs 09/18/24
pantoprazole 20 mg tablet,delayed release (Protonix) 20 mg PO DAILY #30 tabs 09/18/24
Home Medication Changes
Dual antiplatelet therapy with aspirin and Plavix for 21 days.
Statin initiated.
PPI initiated.
Metoprolol initiated
Pending Results: No
[2024-09-18 15:10] VITALS: BP 162/86
[2024-09-18] MEDS: HEPARIN SC (15:32)
[2024-09-18 15:44] LABS: Lamotrigine (Lamictal) 10.7 ug/mL (3.0-15.0)
== END 2024-09-18 16:21 | disposition home health service (06) | DRG 69 ==
LOC: 4 EAST ACU 21:30
PROVIDERS: Nurse Practitioner Adult Health; Registered Nurse; ADMITTING PHYSICIAN Internal Medicine; ATTENDING PHYSICIAN Internal Medicine; CONSULT PHYSICIAN Internal Medicine Cardiovascular Disease; EMERGENCY PHYSICIAN Emergency Medicine; FAMILY PHYSICIAN Internal Medicine; OTHER PHYSICIAN Psychiatry & Neurology Neurology
DX: G45.9 Transient cerebral ischemic attack, unspecified (principal); E22.2 Syndrome of inappropriate secretion of antidiuretic hormone; I47.10 Supraventricular tachycardia, unspecified; I48.91 Unspecified atrial fibrillation; I10 Essential (primary) hypertension; G40.909 Epilepsy, unspecified, not intractable, without status epilepticus; H90.5 Unspecified sensorineural hearing loss; I08.1 Rheumatic disorders of both mitral and tricuspid valves; I70.0 Atherosclerosis of aorta; Z96.21 Cochlear implant status; Z79.02 Long term (current) use of antithrombotics/antiplatelets
CPT/HCPCS: 70450; 70496; 70498; 80048; 80053; 80061; 80175; 81003; 82607; 82728; 82746; 82962; 83036; 84439; 84443; 85025; 85610; 85730; 87070; 92523; 92610; 93005; 93306; 97116; 97163; 97166; 99285; Q9967